=== PATIENT | female | born 1960 | race Caucasian/White ===

== ENCOUNTER → 2017-03-06 | Outpatient (CLI) | payer OTHER ==
[~2017-03-06] MED LIST: ACID CONTROL150 MG PO; ADVIL PM CAPLE1 EACH PO; AMBIEN12.5 M1 PO; ASPIRIN81 M1 PO; ASPIRIN81 M2 PO; BUMETANIDE1 MG PO; CARVEDILOL3.125 MG PO; CIPRO PO; CYMBALTA PO; DEPAKOTE PO; DESONIDE; DIVALPROEX ER PO; FLUOCINONIDE 0.1% TOP; FLUTICASONE; GARCINIA CAMBO1 EACH PO; GEODAN PO; GEODON60 MG; GINKGO BILOBA; HYDROXYZINE PO; LAMICTAL PO; LAMOTRIGINE PO; LASIX PO; LEVOTHYROXINE100 MCG PO; LORATADINE PO; MELATONIN3 M4 PO; NYSTATIN; PHENERGAN25 MG PO; PRAVASTATIN PO; PRILOSEC40 MG PO; RANITIDINE PO; RASPBERRY KETONE; SEROQUEL PO; TAGAMET300 MG PO; TOPAMAX PO; TYLOX 5-500 CA1 EACH PO; TYLOX 5/500 CAP1 CAP PO; TYLOX1 CAP 5/50 PO; UNISOM25 MG PO; VENTOLIN INHALER; VISTARIL PO; VITAMIN B 12 PO; ZOLPIDEM PO; [UNRECOGNIZED DRUG - OTHER] PO
--- NOTE | ~2017-03-06 | CR212 ---
[facility] A Service of [facility] & [facility] RADIOLOGY TEXT RESULTS PATIENT: CATRACHO SANCHES LOCATION: [facility] : 64 UNIT #: [id number] AGE: [address]: FOUZIA CABALLERO APRN SEX: F ORDER DR: [id number] [address] [address] [id number] O MR#: [id number] Acc #: [id number] NAME: CATRACHO SANCHES : 1960 SEX: F STUDY DATE/TIME: 03/06/2017 15:55 UNIT: [facility] ROOM: STUDY DESCRIPTION: CR Ribs Unilateral 2 View Lt Attending Physician: Fouzia Caballero Aprn Ordering Physician: Fouzia Caballero Aprn Primary Care Physician: Fouzia Caballero Aprn MEDICAL IMAGING REPORT This report is preliminary unless electronic signature is present. EXAM Left rib series 03/06/2017 HISTORY A 56-year-old female with left rib pain status post fall 5 days ago. COMPARISON STUDIES None. FINDINGS Three views of the left ribs demonstrate no evidence of a displaced fracture. No other acute bony abnormality. Visualized left lung field is clear. IMPRESSION No evidence of a displaced left-sided rib fracture. No other acute findings. Dictated by... Jacob Childs M.D. THIS IS AN ELECTRONICALLY VERIFIED REPORT Jacob Childs M.D. at 03/07/2017 9:02 AM ZAN/tiffanie TD: 03/07/2017 05:16 JOB #: [id number] MEDICAL IMAGING REPORT Page 1 of 1
== END | disposition home or self-care (01) ==
LOC: SRAD 15:41
DX: R07.81 Pleurodynia (principal)
CPT/HCPCS: 71100